=== PATIENT | male | born 1940 ===

== ENCOUNTER 2019-09-23 15:48 | Outpatient (REF) | payer MEDICARE, MEDICAID, SELFPAY ==
[2019-09-23 18:18] LABS: Bilirubin Negative (Negative); Blood Trace-intact (Negative); Clarity Cloudy (Clear); Glucose Negative (Negative); Ketones Negative (Negative); Leukocyte Esterase Large (Negative); Nitrite Positive (Negative); Specific Gravity 1.025 (1.005-1.025); Urobilinogen 0.2 EU/dL (Up TO 0.2)
[2019-09-23 18:36] LABS: Epithelial Cells Negative HPF (Negative); WBC >50 HPF (0-5)
[2019-09-23 18:37] LABS: Bacteria Rare HPF (Negative); C & S Indicated? Yes; Crystals Many Calcium Oxalate HPF (Negative); Mucus Negative (Negative)
== END 2019-09-23 16:08 ==
LOC: NCHCN 15:48
PROVIDERS: PCP Nurse Practitioner Family; Visit Provider Nurse Practitioner Family
DX: R33.9 Retention of urine, unspecified (principal)
CPT/HCPCS: 87077; 81003; 81015; 87086; 87186

== ENCOUNTER 2019-10-23 13:25 | Outpatient (REF) | payer MEDICARE, MEDICAID, SELFPAY | END 2019-10-23 13:45 | LOC: LBN 13:25 | PROVIDERS: PCP Nurse Practitioner Family; Visit Provider Physician Assistant | DX: N31.9 Neuromuscular dysfunction of bladder, unspecified (principal); R82.998 Other abnormal findings in urine; Z46.6 Encounter for fitting and adjustment of urinary device | CPT/HCPCS: 87086 ==

== ENCOUNTER 2019-11-18 14:39 | Outpatient (REF) | payer MEDICARE, MEDICAID, SELFPAY ==
[2019-11-18 15:21] LABS: Bilirubin Negative (Negative); Blood Small (Negative); Clarity Cloudy (Clear); Glucose Negative (Negative); Ketones Negative (Negative); Leukocyte Esterase Moderate (Negative); Nitrite Negative (Negative); Urobilinogen 0.2 EU/dL (Up TO 0.2); pH 6.5 (5-8)
[2019-11-18 15:31] LABS: WBC >50 HPF (0-5)
[2019-11-18 15:32] LABS: Bacteria Many HPF (Negative); C & S Indicated? C&S Done As Ordered
== END 2019-11-18 14:59 ==
LOC: LBN 14:39
PROVIDERS: PCP Nurse Practitioner Family; Visit Provider Physician Assistant
DX: R33.9 Retention of urine, unspecified (principal)
CPT/HCPCS: 87077; 81003; 81015; 87086; 87186

== ENCOUNTER 2020-01-01 18:30 | Outpatient (REF) | payer MEDICARE, MEDICAID, SELFPAY | END 2020-01-01 18:50 | LOC: LBN 18:30 | PROVIDERS: PCP Nurse Practitioner Family; Visit Provider Physician Assistant | DX: R33.9 Retention of urine, unspecified (principal) | CPT/HCPCS: 87077; 87086; 87186 ==

== ENCOUNTER 2020-03-17 14:11 | Outpatient (REF) | payer MEDICARE, OTHER, MEDICAID, SELFPAY ==
[2020-03-17 18:02] LABS: HCT 41.5 % (40.0-50.0); HGB 12.9 g/dL (13.5-17.5); MCH 30.4 pg (27.0-33.0); MCHC 31.1 % (32.0-36.0); MCV 97.6 fL (80-95); Platelet Count 219 10^3/uL (130-400); RBC 4.25 10^6/uL (4.36-5.78); RDW 13.2 % (11.8-14.1); RDW-SD 47.1 fL; WBC 6.61 10^3/uL (4.4-10.8)
[2020-03-17 18:04] LABS: BUN 12 mg/dL (7-18); CREATININE 1.26 mg/dL (0.70-1.30); Calcium 8.8 mg/dL (8.5-10.1); Chloride 107 mmol/L (98-107); Estimated GFR 55.21 (mL/min/1.73m2); Glucose 89 mg/dL (74-106); Potassium 3.8 mmol/L (3.5-5.1); Sodium 143 mmol/L (136-145)
== END 2020-03-17 14:31 ==
LOC: NCHCN 14:11
PROVIDERS: PCP Nurse Practitioner Family; Visit Provider Physician Assistant
DX: N18.30 Chronic kidney disease, stage 3 unspecified (principal); I48.91 Unspecified atrial fibrillation
CPT/HCPCS: 80048; 85027